=== PATIENT | male | born 1990 | race Caucasian/White ===

== ENCOUNTER 2024-03-14 21:10 | Emergency (ER) | payer OTHER ==
[2024-03-14] MEDS: Lidocaine/Epineph/Tetracaine 3 ML Syringe TOP ONE (22:17)
[2024-03-15] MEDS: Bacitracin Oint 1 GM U/D Packet TOP ONE
== END 2024-03-15 00:06 | disposition home or self-care (01) ==
LOC: MW.ED 21:10
DX: S81.812A Laceration without foreign body, left lower leg, initial encounter (principal); Z75.8 Other problems related to medical facilities and other health care; W25.XXXA Contact with sharp glass, initial encounter
CPT/HCPCS: 12001; 99282; A9270; 99283

== ENCOUNTER 2024-07-29 23:35 | Emergency (ER) | payer OTHER ==
[2024-07-29] MEDS ORDERED: Sodium Chloride 0.9% 10 ML Syringe FLUSH PRN (23:41)
[2024-07-29] MEDS ORDERED: Sodium Chloride 0.9% 2.5 ML Syringe FLUSH PRN (23:41)
[2024-07-29] MEDS: EPINEPHrine 1 MG/1 ML Amp IM ONE (23:43)
[2024-07-29] MEDS: EPINEPHrine 1 MG/1 ML Amp ONE (23:52)
[2024-07-29 23:54] LABS: BASOPHILS ABSOLUTE AUTO 0.03 K/uL (0.00-0.20); BASOPHILS PERCENT AUTO 0.3 % (0.0-1.0); EOSINOPHILS ABSOLUTE AUTO 0.25 K/uL (0.00-0.45); EOSINOPHILS PERCENT AUTO 2.7 % (0.0-6.0); HEMATOCRIT 42.9 % (42.0-52.0); HEMOGLOBIN 14.6 g/dL (14.0-18.0); IMMATURE GRAN ABSOLUTE AUTO 0.04 K/uL (0.00-0.05); IMMATURE GRAN PERCENT AUTO 0.4 % (0.0-0.4); LYMPHOCYTES ABSOLUTE AUTO 4.61 K/uL (1.00-4.80); MEAN CORPUSCULAR HEMOGLOBIN 30.9 pg (28.0-32.0); MEAN CORPUSCULAR VOLUME 90.7 fL (83.0-99.0); MEAN PLATELET VOLUME 9.6 fL (9.4-12.4); MONOCYTES ABSOLUTE AUTO 0.42 K/uL (0.00-0.80); MONOCYTES PERCENT AUTO 4.5 % (0.0-8.0); NEUTROPHILS ABSOLUTE AUTO 4.06 K/uL (1.80-7.70); NEUTROPHILS PERCENT AUTO 43.1 % (41.0-71.0); PLATELET COUNT,PLT 331 K/uL (150-400); RED BLOOD CELL COUNT 4.73 M/uL (4.52-5.90); WHITE BLOOD CELL COUNT,WBC 9.41 K/uL (3.9-11.3)
[2024-07-29] MEDS: diphenhydrAMINE 50 MG/ML SDV IVPUSH ONE (23:56)
[2024-07-29] MEDS: Famotidine 20 MG/2 ML SDV IVPUSH ONE (23:56)
[2024-07-29] MEDS: methylPREDNISolone Sodium Succinate 125 MG/2 ML SDV IVPUSH ONE (23:56)
[2024-07-30 00:28] LABS: A/G RATIO 1.1 (0.9-1.6); ALBUMIN 3.9 g/dL (3.4-5.0); BILIRUBIN TOTAL 0.6 mg/dL (0.2-1.0); CALCIUM 9.7 mg/dL (8.5-10.1); CREATININE 1.1 mg/dL (0.8-1.3); EST CRCL DRUG DOSING (CG) 93.73 mL/min; POTASSIUM,K 3.7 mmol/L (3.5-5.1); PROTEIN TOTAL,TP 7.4 g/dL (6.4-8.2)
== END 2024-07-30 05:54 | disposition home or self-care (01) ==
LOC: MW.ED 23:35
DX: T78.40XA Allergy, unspecified, initial encounter (principal); R07.0 Pain in throat; L29.9 Pruritus, unspecified; Z88.0 Allergy status to penicillin; Z75.8 Other problems related to medical facilities and other health care
CPT/HCPCS: 36415; 80053; 85025; 96372; 96374; 96375; 99284; J0171; J1200; J2919; J3490; 99285